=== PATIENT | male | born 1955 | race African-American/Black ===

== ENCOUNTER 2016-12-14 12:11 | Emergency (ER) | payer OTHER ==
[2016-12-14] MEDS ORDERED: Ibuprofen 800 MG TAB ONE (12:33)
[2016-12-14] MEDS ORDERED: Clindamycin 150 MG CAP ONE (12:33)
[2016-12-14] MEDS ORDERED: HYDROcodone/Acetaminophen 10/325 mg Tablet ONE (12:42)
--- NOTE | 2016-12-14 13:02 | ERRECORD ---
[facility] EMERGENCY RECORD PAST MEDICAL HISTORY (12:20 KMOR) MEDICAL HISTORY: Flu vaccine not up to date, Tetanus not up to date, Pneumococcal vaccine not up to date, Past medical history includes history of hypertension, which has not been treated, Patient is noncompliant, Past medical history includes musculoskeletal disorder, rheumatoid arthritis, Past medical history includes pulmonary disease, chronic obstructive pulmonary disease. MALE SURGICAL HISTORY: Patient's surgical history is not relevant to the management of the case. PSYCHIATRIC HISTORY: No previous psychiatric history. SOCIAL HISTORY: Patient drinks socially, every week, Patient currently uses drugs, abuses marijuana, Social drug use, Patient currently uses tobacco, smokes cigarettes, daily, Patient smokes 1/2 packs per day. KNOWN ALLERGIES No Known Drug Allergies CURRENT MEDICATIONS (12:18 KMOR) None VITAL SIGNS (12:18 KMOR) VITAL SIGNS: BP: 128/89, Pulse: 86, Resp: 18, Temp: 98.6 (Oral), Pain: 7, O2 sat: 98 on Room Air, Time: 12/14/2016 12:18. MEDICATION ADMINISTRATION SUMMARY Drug Name: [place], Dose Ordered: 10 mg, Route: Oral, Status: Given, Time: 12:46 12/14/2016, Drug Name: Motrin, Dose Ordered: 800 mg, Route: Oral, Status: Given, Time: 12:35 12/14/2016, Drug Name: Cleocin capsule, Dose Ordered: 300 mg, Route: Oral, Status: Given, Time: 12:35 12/14/2016, Detailed record available in Medication Service section. PROBLEM LIST No recorded problems DIAGNOSIS (12:43 JPIP) FINAL: PRIMARY: perianal abscess. PRESCRIPTION Cleocin capsule: CAPSULE (HARD, SOFT, ETC.) : 300 mg : ORAL : Quantity: 1 Unit: cap(s) Route: ORAL Schedule: 4 times a day Dispense: 40 May substitute. Refills: No Refills . (12:28 JPIP) NOTES: No refills. (12:28 JPIP) Ultram: TABLET : 50 mg : ORAL : Quantity: 1-2 Unit: &a-1R&a+25V*p+0X*g1708L*c202B*c15G*c2P*p-0X&a-25V&a+1R Name: Eric Suarez : 1955 M61 MedRec: [id number] AcctNum: [id number] Prepared: SunDec 14, 2016 12:58 by Interface Page 1 of 2 pMD [facility] EMERGENCY RECORD tab(s) Route: ORAL Schedule: every 8 hours PRN Dispense: 30 May substitute. Refills: No Refills . (12:30 JPIP) NOTES: for pain No refills. (12:30 JPIP) KIRT-COLACE tablet: TABLET : 8.6 mg-50 mg : ORAL : Quantity: 1 Unit: tab(s) Route: ORAL Schedule: once a day (at bedtime) Dispense: 10 May substitute. Refills: No Refills . (12:34 JPIP) NOTES: No refills. (12:34 JPIP) DISPOSITION PATIENT: Disposition Type: Discharge, Disposition: *Discharge Home, Condition: Good. (12:43 JPIP) Patient left the department. (12:53 LSMI) Mckenna: SPENSERIP=DO Kunz Joseph KMOR=HAYDE Benedict, Yuly LSMI=CHETNA Moore Leah &a-1R&a+25V*p+0X*q8181K*c202B*c15G*c2P*p-0X&a-25V&a+1R Name: Eric Suarez : 1955 M61 MedRec: [id number] AcctNum: [id number] Prepared: SunDec 14, 2016 12:58 by Interface Page 2 of 2 pMD MTDD
--- NOTE | 2016-12-14 13:07 | PICIS ---
[facility] EMERGENCY RECORD TRIAGE (12:17 KMOR) TRIAGE NOTES: ABSCESS FOR 1 WEEK ON LEFT SIDE OF BUTTOCK. (12:17 KMOR) PATIENT: NAME: Eric Suarez, AGE: 61, GENDER: male, : Sun1955, TIME OF GREET: SunDec 14, 2016 12:11, PREFERRED LANGUAGE: Bulgarian, ETHNICITY: Not or , ECODE BILLING MAP: [facility], SSN: [id number], Zip Code: [address], KG WEIGHT: 59.87, PHONE: , , , PERSON ID: [id number], PAYMENT: X Medicaid, PCP: DO MAYEN KRISTEL. (12:17 KMOR) COMPLAINT: ABSCESS. (12:17 KMOR) ADMISSION: URGENCY: 4 Non Urgent, ADMISSION SOURCE: Home, TRANSPORT: CAR, BED: ER -01. (12:17 KMOR) ASSESSMENT: Assessment: A&OX4. RR EVEN AND UNLABROED., Symptoms began greater than 1 week ago. (12:20 KMOR) PAIN: Patient complains of pain described as, aching, on a scale 0-10 patient rates pain as 7, Location LEFT BUTTOCK. (12:20 KMOR) IMMUNIZATIONS: Flu vaccine not up to date, Tetanus not up to date, Pneumococcal vaccine not up to date. (12:20 KMOR) SIRS SCORING: Heart Rate 55-109 (0), Temp range 96.8-101.1 (0), respiratory rate 12-24 (0), Mental Status altered: no (0), Infection or Suspected Infection: No. (12:20 KMOR) TRIAGE SCREENING: Patient denies suicidal ideation, Patient denies presence of domestic violence. (12:20 KMOR) PROVIDERS: TRIAGE NURSE: Yuly Benedict RN. (12:17 KMOR) VITAL SIGNS: BP 128/89, Pulse 86, Resp 18, Temp 98.6, (Oral), Pain 7, O2 Sat 98, on Room Air, Time 12/14/2016 12:18. (12:18 KMOR) KNOWN ALLERGIES No Known Drug Allergies CURRENT MEDICATIONS (12:18 KMOR) None VITAL SIGNS (12:18 KMOR) VITAL SIGNS: BP: 128/89, Pulse: 86, Resp: 18, Temp: 98.6 (Oral), Pain: 7, O2 sat: 98 on Room Air, Time: 12/14/2016 12:18. MEDICATION ADMINISTRATION SUMMARY Drug Name: [place], Dose Ordered: 10 mg, Route: Oral, Status: Given, Time: 12:46 12/14/2016, Drug Name: Motrin, Dose Ordered: 800 mg, Route: Oral, Status: Given, Time: 12:35 12/14/2016, Drug Name: Cleocin capsule, Dose Ordered: 300 mg, Route: Oral, Status: Given, Time: 12:35 12/14/2016, Detailed record available in Medication Service section. &a-1R&a+25V*p+0X*n5840P*c202B*c15G*c2P*p-0X&a-25V&a+1R Name: Eric Suarez : 1955 M61 MedRec: [id number] AcctNum: [id number] Prepared: SunDec 14, 2016 13:04 by Interface Page 1 of 4 pMD [facility] EMERGENCY RECORD MEDICATION SERVICE Cleocin capsule: Order: Cleocin capsule (clindamycin HCl) - Dose: 300 mg : Oral Schedule: Now Ordered by: Jackson Kunz DO Entered by: Jackson Kunz DO [facility] Dec 14, 2016 12:29 , Acknowledged by: Yuly Benedict RN [facility] Dec 14, 2016 12:30 Documented as given by: Yuly Benedict RN [facility] Dec 14, 2016 12:35 Patient, Medication, Dose, Route and Time verified prior to administration. Amount given: 300mg, Site: Medication administered P.O., Correct patient, time, route, dose and medication confirmed prior to administration, Patient advised of actions and side-effects prior to administration, Allergies confirmed and medications reviewed prior to administration, Patient in position of comfort, Side rails up, Cart in lowest position, Family at bedside. Motrin: Order: Motrin (ibuprofen) - Dose: 800 mg : Oral Schedule: Now Ordered by: Jackson Kunz DO Entered by: Jackson Kunz DO [facility] Dec 14, 2016 12:27 , Acknowledged by: Yuly Benedict RN [facility] Dec 14, 2016 12:29 Documented as given by: Yuly Benedict RN [facility] Dec 14, 2016 12:35 Patient, Medication, Dose, Route and Time verified prior to administration. Amount given: 800mg, Site: Medication administered P.O., Correct patient, time, route, dose and medication confirmed prior to administration, Patient advised of actions and side-effects prior to administration, Allergies confirmed and medications reviewed prior to administration, Patient in position of comfort, Side rails up, Cart in lowest position, Family at bedside. Gilman: Order: [place] (hydrocodone bitartrate/acetaminophen) - Dose: 10 mg : Oral Schedule: Now Ordered by: Jackson Kunz DO Entered by: Jackson Kunz DO [facility] Dec 14, 2016 12:27 , Acknowledged by: Yuly Benedict RN [facility] Dec 14, 2016 12:29 Documented as given by: Yuly Benedict RN [facility] Dec 14, 2016 12:46 Patient, Medication, Dose, Route and Time verified prior to administration. Amount given: 1 tab 10mg, Site: Medication administered P.O., Patient appears Awake and alert- acceptable, Correct patient, time, route, dose and medication confirmed prior to administration, Patient advised of actions and side-effects prior to administration, Allergies confirmed and medications reviewed prior to administration, Patient in position of comfort, Side rails up, Cart in lowest position, Family at bedside. PAST MEDICAL HISTORY (12:20 KMOR) MEDICAL HISTORY: Flu vaccine not up to date, &a-1R&a+25V*p+0X*h6131S*c202B*c15G*c2P*p-0X&a-25V&a+1R Name: Eric Suarez : 1955 M61 MedRec: [id number] AcctNum: [id number] Prepared: SunDec 14, 2016 13:04 by Interface Page 2 of 4 pMD [facility] EMERGENCY RECORD Tetanus not up to date, Pneumococcal vaccine not up to date, Past medical history includes history of hypertension, which has not been treated, Patient is noncompliant, Past medical history includes musculoskeletal disorder, rheumatoid arthritis, Past medical history includes pulmonary disease, chronic obstructive pulmonary disease. MALE SURGICAL HISTORY: Patient's surgical history is not relevant to the management of the case. PSYCHIATRIC HISTORY: No previous psychiatric history. SOCIAL HISTORY: Patient drinks socially, every week, Patient currently uses drugs, abuses marijuana, Social drug use, Patient currently uses tobacco, smokes cigarettes, daily, Patient smokes 1/2 packs per day. EVENTS TRANSFER: Triage to Emergency Emergency Room -01. (SunDec 14, 2016 12:17 KMOR) Removed from Emergency Emergency Room -01. (12:53 LSMI) PROBLEM LIST No recorded problems DIAGNOSIS (12:43 JPIP) FINAL: PRIMARY: perianal abscess. DISPOSITION PATIENT: Disposition Type: Discharge, Disposition: *Discharge Home, Condition: Good. (12:43 JPIP) Patient left the department. (12:53 LSMI) INSTRUCTION (12:34 JPIP) DISCHARGE: ABSCESS PERIANAL ABX ONLY. FOLLOWUP: DO MAYEN KRISTEL, [facility], [address] [place] [id number], [phone]. SPECIAL: Follow up with Primary Care Physician within 72 hours Call your Primary Care Physician in the morning for a follow up appointment Return to the Emergency Department for increased symptoms problems or concerns Take acetaminophen or ibuprofen for pain. PRESCRIPTION Cleocin capsule: CAPSULE (HARD, SOFT, ETC.) : 300 mg : ORAL : Quantity: 1 Unit: cap(s) Route: ORAL Schedule: 4 times a day Dispense: 40 May substitute. Refills: No Refills . (12:28 JPIP) NOTES: No refills. (12:28 JPIP) Ultram: TABLET : 50 mg : ORAL : Quantity: 1-2 Unit: tab(s) Route: ORAL Schedule: every 8 hours PRN Dispense: 30 &a-1R&a+25V*p+0X*u8545H*c202B*c15G*c2P*p-0X&a-25V&a+1R Name: Eric Suarez Harini : 1955 M61 MedRec: [id number] AcctNum: [id number] Prepared: SunDec 14, 2016 13:04 by Interface Page 3 of 4 pMD [facility] EMERGENCY RECORD May substitute. Refills: No Refills . (12:30 JPIP) NOTES: for pain No refills. (12:30 JPIP) KIRT-COLACE tablet: TABLET : 8.6 mg-50 mg : ORAL : Quantity: 1 Unit: tab(s) Route: ORAL Schedule: once a day (at bedtime) Dispense: 10 May substitute. Refills: No Refills . (12:34 JPIP) NOTES: No refills. (12:34 JPIP) IMAGING (12:52 LSMI) *DISCHARGE INSTRUCTIONS RECEIPT: Image captured from scanner. *SUPPLY CHARGE SHEET: Image captured from scanner. Mckenna: RENA=DO Kunz Joseph KMOR=HAYDE Benedict, Yuly LSMI=CHETNA Moore Leah &a-1R&a+25V*p+0X*w8585Q*c202B*c15G*c2P*p-0X&a-25V&a+1R Name: Eric Suarez Harini : 1955 M61 MedRec: [id number] AcctNum: [id number] Prepared: Angelina Dec 14, 2016 13:04 by Interface Page 4 of 4 pMD MTDD
== END 2016-12-14 12:51 | disposition home or self-care (01) ==
LOC: BURERS 12:11
DX: L02.215 Cutaneous abscess of perineum (principal); I10 Essential (primary) hypertension; M06.9 Rheumatoid arthritis, unspecified; J44.9 Chronic obstructive pulmonary disease, unspecified; F17.210 Nicotine dependence, cigarettes, uncomplicated
CPT/HCPCS: 99283

== ENCOUNTER 2016-12-18 16:05 | Outpatient (CLI) | payer OTHER ==
[2016-12-18 16:49] LABS: #Basophils 0.2 thou/uL (0.0-0.2); #Eosinphils 0.1 thou/uL (0.0-0.7); #Lymphocytes 5.5 thou/uL (1.20-3.40); #Monocytes 0.5 thou/uL (0.11-0.59); #Neutrophils 8.1 thou/uL (1.40-6.50); %Basophils 1.2 % (0.0-1.0); %Eosinophils 0.4 % (0.0-10.0); %Monocytes 3.5 % (0.0-10.0); Hematocrit 44.5 % (42.0-52.0); Mean Platelet Volume 7.2 fL (7.4-10.4); Red Blood Cell (RBC) Count 4.62 mill/uL (4.70-6.10); White Blood Cell (WBC) Count 14.3 thou/uL (4.8-10.8)
[2016-12-18 17:05] LABS: ALT (SGPT) Less than 6 U/L (0-55); AST (SGOT) 10 U/L (5-34); Alkaline Phosphatase 65 U/L (40-150); Anion Gap 14 mmol/L (10-20); BUN (Urea Nitrogen) 10 mg/dL (8.4-25.7); Bilirubin, Total 0.3 mg/dL (0.2-1.2); Calc. Creatinine Clearance 0 mL/min (70-130); Calcium 9.3 mg/dL (7.8-10.44); Carbon Dioxide 25 mmol/L (23-31); Chloride 107 mmol/L (98-107); Estimated GFR-MDRD Greater than 90; Globulin 3.9 g/dL (2.4-3.5); LDL Cholesterol, Calculated 70 mg/dL; Protein, Total 7.6 g/dL (5.8-8.1)
== END 2016-12-18 16:06 | disposition home or self-care (01) ==
LOC: HPCALD 16:05
PROVIDERS: ATTEND Physician Assistant
DX: I10 Essential (primary) hypertension (principal); K61.0 Anal abscess
CPT/HCPCS: 36415; 80053; 80061; 84443; 85025; 87070; 87205

== ENCOUNTER 2020-02-01 10:56 | Emergency (ER) | payer OTHER ==
[2020-02-01] MEDS ORDERED: Triple Antibiotic Oint 1 GM Packet ONE (11:16)
[2020-02-01] MEDS ORDERED: AMOXicillin 250 MG CAP ONE (11:16)
== END 2020-02-01 11:43 | disposition home or self-care (01) ==
LOC: BURERS 10:56
DX: S81.852A Open bite, left lower leg, initial encounter (principal); S81.832A Puncture wound without foreign body, left lower leg, initial encounter; S60.512A Abrasion of left hand, initial encounter; I10 Essential (primary) hypertension; M06.9 Rheumatoid arthritis, unspecified; J44.9 Chronic obstructive pulmonary disease, unspecified; F17.210 Nicotine dependence, cigarettes, uncomplicated; Z91.14 Patient's other noncompliance with medication regimen; W54.0XXA Bitten by dog, initial encounter
CPT/HCPCS: 99283

== ENCOUNTER 2020-04-02 11:08 | Emergency (ER) | payer MEDICARE, OTHER | END 2020-04-02 11:35 | disposition home or self-care (01) | LOC: BURERS 11:08 | DX: L02.214 Cutaneous abscess of groin (principal); M06.9 Rheumatoid arthritis, unspecified; J44.9 Chronic obstructive pulmonary disease, unspecified; F17.210 Nicotine dependence, cigarettes, uncomplicated | CPT/HCPCS: 10060 ==

== ENCOUNTER 2021-07-17 13:32 | Emergency (ER) | payer MEDICARE, MEDICAID ==
[2021-07-17] MEDS ORDERED: HYDROcodone/Acetaminophen 10/325 mg Tablet ONE (14:14)
[2021-07-17] MEDS ORDERED: Ibuprofen 800 MG TAB ONE (14:15)
[2021-07-17] MEDS ORDERED: Lidocaine 1% PF 5 ML VIAL ONE (14:15)
[2021-07-17] MEDS ORDERED: cefTRIAXone\\ROCEPHIN 1 GM VIAL ONE (14:15)
== END 2021-07-17 14:30 | disposition home or self-care (01) ==
LOC: BURERS 13:32
DX: L02.214 Cutaneous abscess of groin (principal); J44.9 Chronic obstructive pulmonary disease, unspecified; F17.210 Nicotine dependence, cigarettes, uncomplicated
CPT/HCPCS: 96372; 99282; J0696

== ENCOUNTER 2021-09-22 13:54 | Outpatient (CLI) | payer MEDICARE, MEDICAID ==
[2021-09-22 14:20] LABS: #Basophils 0.1 thou/uL (0.0-0.2); #Lymphocytes 3.2 thou/uL (1.20-3.40); #Monocytes 0.6 thou/uL (0.11-0.59); #Neutrophils 7.9 thou/uL (1.40-6.50); %Basophils 1.1 % (0.0-1.0); %Eosinophils 0.3 % (0.0-10.0); %Lymphocytes 27.2 % (21.0-51.0); %Monocytes 5.1 % (0.0-10.0); %Neutrophils 66.3 % (42.0-75.0); Mean Corpuscular HGB CONC 32.5 g/dL (32.0-36.0); Mean Corpuscular Hemoglobin 30.3 pg (27.0-31.0); Mean Corpuscular Volume 93.3 fL (78.0-98.0); Mean Platelet Volume 9.1 fL (7.4-10.4); Platelet Count 346 thou/uL (130-400); RBC Distribution Width 13.3 % (11.5-14.5); Red Blood Cell (RBC) Count 4.63 mill/uL (4.70-6.10); White Blood Cell (WBC) Count 11.9 thou/uL (4.8-10.8)
[2021-09-22 15:00] LABS: ALT (SGPT) Less than 7 U/L (8-55); AST (SGOT) 13 U/L (5-34); Albumin 3.8 g/dL (3.4-4.8); Alkaline Phosphatase 74 U/L (40-110); Anion Gap 15 mmol/L (10-20); BUN (Urea Nitrogen) 11 mg/dL (8.4-25.7); Bilirubin, Total 0.2 mg/dL (0.2-1.2); Calc. Creatinine Clearance 0 mL/min (70-130); Carbon Dioxide 26 mmol/L (23-31); Chloride 104 mmol/L (98-107); Globulin 3.9 g/dL (2.4-3.5); Glucose 102 mg/dL (80-115); Potassium 5.2 mmol/L (3.5-5.1); Protein, Total 7.7 g/dL (5.8-8.1); Sodium 140 mmol/L (136-145)
[2021-09-23 08:45] LABS: SARS-CoV-2 PCR by NAA Not Detected (NotDetected)
== END 2021-09-22 13:55 | disposition home or self-care (01) ==
LOC: BUREKG 13:54
PROVIDERS: ATTEND Surgery
DX: Z01.812 Encounter for preprocedural laboratory examination (principal); L73.2 Hidradenitis suppurativa; Z20.822 Contact with and (suspected) exposure to COVID-19
CPT/HCPCS: 80053; 85025; 93005; 93010; U0003; U0005